=== PATIENT | female | born 2000 | race Caucasian/White ===

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

== ENCOUNTER 2021-08-26 10:09 | Emergency (ER) | payer OTHER ==
[~2021-08-26] VITALS: Ht 154.9 cm; Wt 61.7 kg
[~2021-08-26 10:09] MED LIST: Flagyl500 MG PO; Vibramycin100 MG PO
[2021-08-26 10:36] LABS: Source, Urine Clean Catch
[2021-08-26 10:40] LABS: Appearance, Urine Clear (Clear); Bilirubin, Urine Neg (Neg); Blood, Urine Neg (Neg); Color, Urine Yellow (P-Yellow); Glucose Qualitative, Urine Neg (Neg); Ketones, Urine Neg (Neg); Leukocyte Esterase, Urine Neg (Neg); Nitrite, Urine Neg (Neg); Protein, Urine Neg (Neg); Specific Gravity, Urine 1.015 (1.003-1.022); Urobilinogen, Urine NORM (Normal)
== END 2021-08-26 11:56 | disposition home or self-care (01) ==
LOC: ER 10:09
PROVIDERS: Physician Assistant
DX: O20.9 Hemorrhage in early pregnancy, unspecified (principal); Z3A.13 13 weeks gestation of pregnancy
CPT/HCPCS: 81003

== ENCOUNTER 2022-02-28 03:23 | Inpatient (IN) | payer OTHER ==
[~2022-02-28] VITALS: Ht 154.9 cm; Wt 81.0 kg
[2022-02-28] MEDS ORDERED: PRENATAL TABLE1 EAC2 PO (04:50)
[2022-02-28 05:10] LABS: BASOPHILS ABSOLUTE AUTO 0.03 K/mm3 (0.00-0.23); BASOPHILS PERCENT AUTO 0 % (0-2); EOSINOPHILS ABSOLUTE AUTO 0.06 K/mm3 (0.00-0.68); EOSINOPHILS PERCENT AUTO 0 % (0-6); Hematocrit 37.6 % (33.0-51.0); Hemoglobin 12.1 g/dL (11.5-16.0); IMMATURE GRAN ABSOLUTE AUTO 0.17 K/mm3 (0.00-0.10); IMMATURE GRAN PERCENT AUTO 1 % (0-1); LYMPHOCYTES ABSOLUTE AUTO 1.84 K/mm3 (0.84-5.20); LYMPHOCYTES PERCENT AUTO 13 % (21-46); MONOCYTES ABSOLUTE AUTO 1.13 K/mm3 (0.16-1.47); MONOCYTES PERCENT AUTO 8 % (4-13); Mean Corpuscular HGB 26.1 pg (26.0-34.0); Mean Corpuscular HGB Conc 32.2 g/dL (31.5-36.5); Mean Corpuscular Volume 81 fL (80-100); Mean Platelet Volume 11.4 fL (9.1-12.4); NEUTROPHILS ABSOLUTE AUTO 11.01 K/mm3 (1.96-9.15); NEUTROPHILS PERCENT AUTO 77 % (41-73); Platelet Count 171 K/mm3 (150-400); RDW Coefficient Variation 19.7 % (11.7-14.2); Red Blood Cell Count 4.64 M/mm3 (3.80-5.20); White Blood Cell Count 14.24 K/mm3 (4.00-11.30)
[2022-02-28 23:21] LABS: PCO2 Cord - Arterial 57.3 mmHg (40-50); PO2 Cord - Arterial < 16 mmHg (16-20)
[2022-02-28 23:24] LABS: PCO2 Cord - Venous 50.7 mmHg (40-50); PO2 Cord - Venous < 16 mmHg (28-32); pH Umbilical Cord - Venous 7.24 (7.26-7.35)
[2022-03-01 11:01] LABS: BASOPHILS ABSOLUTE AUTO 0.03 K/mm3 (0.00-0.23); BASOPHILS PERCENT AUTO 0 % (0-2); EOSINOPHILS PERCENT AUTO 0 % (0-6); Hematocrit 33.8 % (33.0-51.0); Hemoglobin 10.9 g/dL (11.5-16.0); IMMATURE GRAN ABSOLUTE AUTO 0.12 K/mm3 (0.00-0.10); IMMATURE GRAN PERCENT AUTO 1 % (0-1); LYMPHOCYTES ABSOLUTE AUTO 0.91 K/mm3 (0.84-5.20); LYMPHOCYTES PERCENT AUTO 5 % (21-46); MONOCYTES ABSOLUTE AUTO 1.22 K/mm3 (0.16-1.47); MONOCYTES PERCENT AUTO 7 % (4-13); Mean Corpuscular HGB 26.2 pg (26.0-34.0); Mean Corpuscular HGB Conc 32.2 g/dL (31.5-36.5); Mean Corpuscular Volume 81 fL (80-100); Mean Platelet Volume 11.5 fL (9.1-12.4); NEUTROPHILS ABSOLUTE AUTO 15.71 K/mm3 (1.96-9.15); NEUTROPHILS PERCENT AUTO 87 % (41-73); Platelet Count 183 K/mm3 (150-400); RDW Coefficient Variation 20.1 % (11.7-14.2); RDW Standard Deviation 57.7 fL (35.1-46.3); Red Blood Cell Count 4.16 M/mm3 (3.80-5.20); White Blood Cell Count 17.99 K/mm3 (4.00-11.30)
[2022-03-02] MEDS ORDERED: Percocet 5-3251 EACH PO (10:25)
[2022-03-02] MEDS ORDERED: IBUP800 PO (10:26)
== END 2022-03-02 18:41 | disposition home or self-care (01) | DRG 788 ==
LOC: OBS 03:23 → BC 03:24 → OBS 04:02 → BC 04:04
PROVIDERS: Obstetrics & Gynecology; ADMIT Advanced Practice Midwife
PROC: 10H07YZ Insertion of Other Device into Products of Conception, Via Natural or Artificial Opening (ICD-10-PCS; 2022-02-28)
PROC: 10D00Z1 Extraction of Products of Conception, Low, Open Approach (ICD-10-PCS; principal; 2022-02-28 21:45)
DX: O48.0 Post-term pregnancy (principal); Z37.0 Single live birth; O77.0 Labor and delivery complicated by meconium in amniotic fluid; O99.02 Anemia complicating childbirth; D64.9 Anemia, unspecified; O76 Abnormality in fetal heart rate and rhythm complicating labor and delivery; O42.92 Full-term premature rupture of membranes, unspecified as to length of time between rupture and onset of labor; O62.1 Secondary uterine inertia; Z3A.40 40 weeks gestation of pregnancy; Z79.899 Other long term (current) drug therapy; Z79.2 Long term (current) use of antibiotics
CPT/HCPCS: 36415; 51702; 59025; 82803; 85025; 86850; 86900; 86901; A9270; J0290; J0690; J1100; J1885; J2001; J2210; J2270; J2370; J2405; J2590; J2704; J2765; J3010; J7120

== ENCOUNTER 2024-01-14 12:38 | Inpatient (IN) | payer OTHER ==
[~2024-01-14] VITALS: Ht 157.5 cm; Wt 75.0 kg
[2024-01-14] VITALS (16 sets, daily range): BP systolic 113–137; BP diastolic 65–82
[~2024-01-14 12:38] MED LIST changes: +IBUP800 PO; +PRENATAL TABLE1 EAC2 PO; +Percocet 5-3251 EACH PO
[2024-01-14] MEDS ORDERED: Lactated Ringer's 1,000 ML IV SCH ×3 (13:05→16:25)
[2024-01-14] MEDS ORDERED: Citric Acid/Sodium Citrate 30 ML BTL PO SCH (13:05)
[2024-01-14] MEDS ORDERED: Metoclopramide HCl 5MG / ML 2ML Vial IV SCH (13:05)
[2024-01-14] MEDS ORDERED: CeFAZolin Sodium 2,000 MG in NS 100 ML IV SCH ×2 (13:05→22:00)
[2024-01-14 13:31] LABS: BASOPHILS ABSOLUTE AUTO 0.02 K/mm3 (0.00-0.23); BASOPHILS PERCENT AUTO 0 % (0-2); EOSINOPHILS ABSOLUTE AUTO 0.06 K/mm3 (0.00-0.68); EOSINOPHILS PERCENT AUTO 1 % (0-6); Hemoglobin 13.6 g/dL (11.5-16.0); IMMATURE GRAN ABSOLUTE AUTO 0.06 K/mm3 (0.00-0.10); IMMATURE GRAN PERCENT AUTO 1 % (0-1); LYMPHOCYTES ABSOLUTE AUTO 1.31 K/mm3 (0.84-5.20); LYMPHOCYTES PERCENT AUTO 13 % (21-46); MONOCYTES ABSOLUTE AUTO 0.65 K/mm3 (0.16-1.47); MONOCYTES PERCENT AUTO 7 % (4-13); Mean Corpuscular HGB 27.1 pg (26.0-34.0); Mean Corpuscular HGB Conc 32.4 g/dL (31.5-36.5); Mean Corpuscular Volume 84 fL (80-100); Mean Platelet Volume 11.3 fL (9.1-12.4); NEUTROPHILS ABSOLUTE AUTO 7.87 K/mm3 (1.96-9.15); NEUTROPHILS PERCENT AUTO 79 % (41-73); Platelet Count 177 K/mm3 (150-400); RDW Coefficient Variation 25.3 % (11.7-14.2); RDW Standard Deviation 74.1 fL (35.1-46.3); Red Blood Cell Count 5.01 M/mm3 (3.80-5.20); White Blood Cell Count 9.97 K/mm3 (4.00-11.30)
[2024-01-14] MEDS ORDERED: FentaNYL Citrate 50 MCG/ML 2 ML Injection ONE (14:29)
--- NOTE | 2024-01-14 14:42 | NUR ---
01/14/24 1442 Syeda Enamorado DOPPLER FHT PRIOR TO SKIN PREP 150S
[2024-01-14] MEDS ORDERED: Ondansetron HCl 2 MG / ML 2ML Vial ONE (14:53)
[2024-01-14] MEDS ORDERED: Phenylephrine HCl 100 MCG/ML-NS 10MLSYR (1MG/10ML) ONE (14:53)
[2024-01-14] MEDS ORDERED: Dexamethasone Sod Phos 10 MG/ML 1ML VIAL ONE (14:53)
[2024-01-14] MEDS ORDERED: Midazolam HCl 1MG / ML 2ML Vial ONE (15:05)
[2024-01-14] MEDS ORDERED: Oxytocin 10 Unit / ML Vial ONE ×2 (15:05→15:29)
[2024-01-14 15:16] LABS: PO2 Cord - Arterial < 14.0 mmHg (16-20); pH Cord - Arterial 7.24 (7.28-7.35)
[2024-01-14 15:18] LABS: PCO2 Cord - Venous 44.9 mmHg (40-50); PO2 Cord - Venous 22.6 mmHg (28-32); pH Umbilical Cord - Venous 7.29 (7.26-7.35)
[2024-01-14] MEDS ORDERED: Ketorolac Tromethamine 30mg Vial ONE (15:29)
[2024-01-14] MEDS ORDERED: Promethazine HCl 12.5 MG Supp PR PRN (16:20)
[2024-01-14] MEDS ORDERED: OxyCODONE 5 mg/Acetamin 325 mg TABLET PO PRN (16:20)
[2024-01-14] MEDS ORDERED: Morphine Sulfate 4 MG/1 ML Injection IV PRN (16:20)
[2024-01-14] MEDS ORDERED: Methylergonovine Maleate 0.2MG / ML 1ML Amp IM PRN (16:20)
[2024-01-14] MEDS ORDERED: Ondansetron HCl 2 MG / ML 2ML Vial IV PRN (16:20)
[2024-01-14] MEDS ORDERED: Misoprostol 200 MCG Tab PR PRN (16:20)
[2024-01-14] MEDS ORDERED: Lanolin Cream TOP PRN (16:20)
[2024-01-14] MEDS ORDERED: Acetaminophen 500 MG Tab PO PRN (16:25)
[2024-01-14] MEDS ORDERED: Simethicone 80 MG Chew PO PRN (16:25)
[2024-01-14] MEDS ORDERED: Promethazine HCl 25 MG Tab PO PRN (16:25)
[2024-01-14] MEDS ORDERED: Promethazine HCl 25 MG Supp PR PRN (16:25)
[2024-01-14] MEDS ORDERED: Magnesium Hydroxide Conc 10 ML UDC PO PRN (16:30)
[2024-01-14] MEDS ORDERED: Tranexamic Acid 100 ML IV PRN (16:40)
[2024-01-14] MEDS ORDERED: Ketorolac Tromethamine 30mg Vial IV PRN (17:00)
[2024-01-14] MEDS ORDERED: OXYTOCIN/RINGER'S LACTATE 16.66666666 ML IV SCH (17:00)
[2024-01-14] MEDS ORDERED: Ketorolac Tromethamine 30mg Vial IV SCH (17:00)
--- NOTE | 2024-01-14 18:58 | NUR ---
REPT TO PM SHIFT
[2024-01-14] MEDS ORDERED: Docusate Sodium 100 MG Cap PO SCH (21:00)
[2024-01-15] MEDS ORDERED: Ibuprofen 400 MG Tab PO SCH
[2024-01-15 04:42] VITALS: BP 127/73
[2024-01-15 06:43] LABS: BASOPHILS ABSOLUTE AUTO 0.01 K/mm3 (0.00-0.23); BASOPHILS PERCENT AUTO 0 % (0-2); EOSINOPHILS ABSOLUTE AUTO 0.01 K/mm3 (0.00-0.68); EOSINOPHILS PERCENT AUTO 0 % (0-6); Hematocrit 33.6 % (33.0-51.0); IMMATURE GRAN ABSOLUTE AUTO 0.08 K/mm3 (0.00-0.10); IMMATURE GRAN PERCENT AUTO 1 % (0-1); LYMPHOCYTES ABSOLUTE AUTO 1.31 K/mm3 (0.84-5.20); LYMPHOCYTES PERCENT AUTO 10 % (21-46); MONOCYTES ABSOLUTE AUTO 1.02 K/mm3 (0.16-1.47); MONOCYTES PERCENT AUTO 8 % (4-13); Mean Corpuscular HGB 27.3 pg (26.0-34.0); Mean Corpuscular HGB Conc 32.7 g/dL (31.5-36.5); Mean Corpuscular Volume 83 fL (80-100); NEUTROPHILS PERCENT AUTO 82 % (41-73); Platelet Count 163 K/mm3 (150-400); RDW Coefficient Variation 25.2 % (11.7-14.2); RDW Standard Deviation 73.8 fL (35.1-46.3); Red Blood Cell Count 4.03 M/mm3 (3.80-5.20); White Blood Cell Count 13.23 K/mm3 (4.00-11.30)
[2024-01-15 07:37] VITALS: BP 118/67
[2024-01-15] MEDS ORDERED: Prenatal Vit/FE Fumarate/FA 1 Tab PO SCH (09:00)
[2024-01-15 11:15] VITALS: BP 121/72
[2024-01-15 15:38] VITALS: BP 142/77
[2024-01-15 20:45] VITALS: BP 122/67
[2024-01-15] MEDS ORDERED: Magnesium Hydroxide Conc 10 ML UDC PO SCH (21:00)
[2024-01-16 00:21] VITALS: BP 117/58
[2024-01-16] MEDS ORDERED: IBUP800 PO (07:20)
[2024-01-16 09:59] VITALS: BP 133/79
--- NOTE | 2024-01-16 10:34 | NUR ---
DISCHARGE READY TO [facility] HOME. STABLE. CARING FOR SELF AND BABY INDEPENDANTLY. NO QUESTIONS OR CONCERNS. VERBALIZES UNDERSTANDING OF DC INSTRUCTIONS AND FOLLOW UP APPOINTMENTS. HERMINIO GALLAGHER. VSS.
[2024-01-16] MEDS ORDERED: FLU VACC TS2024-25(6MOS UP)/PF 45 MCG/0.5 ML SYRINGE IM SCH (10:55)
== END 2024-01-16 11:00 | disposition home or self-care (01) | DRG 788 ==
LOC: BC 12:55
PROVIDERS: ADMIT Obstetrics & Gynecology
PROC: 10D00Z1 Extraction of Products of Conception, Low, Open Approach (ICD-10-PCS; principal; 2024-01-14 15:00)
DX: O34.211 Maternal care for low transverse scar from previous cesarean delivery (principal); Z3A.39 39 weeks gestation of pregnancy; Z37.0 Single live birth; O99.02 Anemia complicating childbirth; D50.9 Iron deficiency anemia, unspecified
CPT/HCPCS: 36415; 82803; 85025; 86850; 86900; 86901; A9270; J0690; J1100; J1885; J2250; J2371; J2405; J2590; J2765; J3010; J7120